=== PATIENT | female | born 1985 | race Caucasian/White ===

== ENCOUNTER → 2017-01-10 | Outpatient (CLI) | payer BC ==
[~2017-01-10] MED LIST: IBUP60TA PO; OMEP10CASR PO; PRENTAB31 PO
[2017-01-10 12:17] LABS: BASO % 0.7 % (0.0-1.0); EOS # 0.2 K/mm3 (0.0-0.50); EOS % 2.7 % (0.0-3.0); LARGE UNSTAINED CELL # 0.1 K/mm3 (0.0-0.4); LARGE UNSTAINED CELL % 1.6 % (0.0-4.0); LYMPH % 25.7 % (24.0-44.0); MEAN CORPUSCULAR HEMOGLOBIN 31.1 pg (27.0-33.0); MEAN CORPUSCULAR HGB CONC 35.6 g/dl (32.0-36.5); MEAN CORPUSCULAR VOLUME 87.3 fl (80.0-96.0); MONO # 0.3 K/mm3 (0.0-0.8); MONO % 4.5 % (0.0-5.0); NEUTROPHILS # 4.7 K/mm3 (1.8-7.7); NEUTROPHILS % 64.9 % (36.0-66.0); PLATELET COUNT, AUTOMATED 239 k/mm3 (150-450); RED CELL DISTRIBUTION WIDTH 12.6 % (11.5-14.5); WHITE BLOOD COUNT 7.3 K/mm3 (4.0-10.0)
[2017-01-10 12:38] LABS: HBsAg Prenatal NEGATIVE (NEGATIVE)
== END ==
LOC: M SMT 08:36
PROVIDERS: ATTEND Advanced Practice Midwife
DX: Z36 Encounter for antenatal screening of mother (principal)

== ENCOUNTER → 2017-01-17 | Outpatient (CLI) | payer BC ==
[2017-01-17 14:02] LABS: ALT/SGPT 21 U/L (12-78); AST/SGOT 12 U/L (15-37); BILIRUBIN,TOTAL 0.5 MG/DL (0.2-1.0); CREATININE FOR GFR 0.69 MG/DL (0.55-1.02); GLOMERULAR FILTRATION RATE > 60.0 (>60); URIC ACID 2.4 MG/DL (2.6-6.0)
== END ==
LOC: M SMT 08:24
PROVIDERS: ATTEND Advanced Practice Midwife
DX: O10.013 Pre-existing essential hypertension complicating pregnancy, third trimester (principal); O10.011 Pre-existing essential hypertension complicating pregnancy, first trimester; O99.280 Endocrine, nutritional and metabolic diseases complicating pregnancy, unspecified trimester

== ENCOUNTER → 2017-02-16 | Outpatient (REF) | payer BC | LOC: M LAB REF 17:14 | PROVIDERS: ATTEND Advanced Practice Midwife | DX: O10.011 Pre-existing essential hypertension complicating pregnancy, first trimester (principal) ==

== ENCOUNTER → 2017-03-28 | Outpatient (CLI) | payer BC ==
--- NOTE | 2017-03-29 07:20 | REP ---
Clinical: Anatomical evaluation. Comparison: None . Findings: Examination demonstrates a single live intrauterine in variable presentation. motion is identified by technologist. Placenta is noted anteriorly and grade zero without evidence for placenta previa or abruption. Amniotic fluid volume is normal. Cervix measures 4.9 cm in length and appears closed. Nuchal cord noted. Gestational age by LMP 19 weeks 0 days with KATARINA 08/22/2017 . Gestational age by current measurements 19 weeks 3 days with KATARINA 08/19/2017 . FHR equals 167 beats per minute. BPD 4.4 cm 19 weeks 2 days HC 16.5 cm 19 weeks 1 day AC 15.5 cm 20 weeks 5 days FL 2.8 cm 18 weeks 4 days HL 2.8 70 19 weeks 1 day HC/AC ratio 1.06 Estimated weight 304 grams ( 71st percentile). Anatomical assessment demonstrates normal structures including cranium, choroid plexus, cavum, cerebellum/posterior fossa, lungs, four-chamber heart/ventricular outflow tracts, diaphragm, stomach, cord insertion/three-vessel cord, kidneys/bladder, spine, and extremities. Impression: Single live intrauterine in variable presentation. Nuchal cord is suggested. Appropriate interval growth noted. Limited evaluation of the facial features. Otherwise complete anatomical assessment. Signed by Kimani Platt MD 03/29/2017 07:11 A
== END ==
LOC: M RAD 14:17
PROVIDERS: ATTEND Internal Medicine
DX: O34.211 Maternal care for low transverse scar from previous cesarean delivery (principal); Z3A.19 19 weeks gestation of pregnancy

== ENCOUNTER → 2017-04-21 | Outpatient (CLI) | payer BC ==
--- NOTE | 2017-04-22 05:03 | REP ---
Clinical: Anatomical evaluation. Comparison: 03/28/2017 . Findings: Examination demonstrates a single live intrauterine in transverse (head to maternal left) presentation. motion is identified by technologist. Placenta is noted anteriorly and grade zero without evidence for placenta previa or abruption. Amniotic fluid volume is normal. Cervix measures 4.7 cm in length and appears closed. No evidence for nuchal cord. Gestational age by LMP 22 weeks 3 days with KATARINA 08/22/2017 . Gestational age by current measurements 22 weeks 1 day with KATARINA 08/24/2017 . FHR equals 147 beats per minute. Estimated weight 530 grams ( 856 percentile). Anatomical assessment demonstrates normal structures including cranium, choroid plexus, cavum, cerebellum/posterior fossa, facial features, lungs, diaphragm, stomach, cord insertion/three-vessel cord, kidneys/bladder, and upper extremities. Impression: Single live intrauterine in transverse lie demonstrating appropriate interval growth. In conjunction with prior examination anatomical assessment is complete and normal. Signed by Kimani Platt MD 04/22/2017 04:55 A
== END ==
LOC: M SMT 13:19
PROVIDERS: ATTEND Advanced Practice Midwife
DX: Z36.2 Encounter for other antenatal screening follow-up (principal)

== ENCOUNTER → 2017-05-12 | Outpatient (CLI) | payer BC ==
[2017-05-12 18:47] LABS: BASO % 0.3 % (0.0-1.0); EOS # 0.4 10^3/uL (0.0-0.50); EOS % 3.5 % (0.0-3.0); IMMATURE GRANULOCYTE % 0.5 % (0-0); LYMPH # 2.2 10^3/uL (1.5-4.5); LYMPH % 20.4 % (24.0-44.0); MEAN CORPUSCULAR HEMOGLOBIN 30.5 pg (27.0-33.0); MEAN CORPUSCULAR HGB CONC 34.3 g/dl (32.0-36.5); MONO # 0.7 10^3/uL (0.0-0.8); MONO % 6.4 % (0.0-5.0); NEUTROPHILS # 7.5 10^3/uL (1.8-7.7); NEUTROPHILS % 68.9 % (36.0-66.0); PLATELET COUNT, AUTOMATED 229 10^3/uL (150-450); RED CELL DISTRIBUTION WIDTH 13.2 % (11.5-14.5); WHITE BLOOD COUNT 10.8 10^3/uL (4.0-10.0)
== END ==
LOC: M SMT 13:36
PROVIDERS: ATTEND Advanced Practice Midwife
DX: Z34.83 Encounter for supervision of other normal pregnancy, third trimester (principal)

== ENCOUNTER → 2017-07-01 | Outpatient (REF) | payer BC | LOC: M LAB REF 13:47 | DX: J02.9 Acute pharyngitis, unspecified (principal) | CPT/HCPCS: 87081 ==

== ENCOUNTER → 2017-07-25 | Outpatient (REF) | payer BC | LOC: M LAB REF 17:05 | DX: Z34.83 Encounter for supervision of other normal pregnancy, third trimester (principal) ==

== ENCOUNTER → 2017-07-27 | Outpatient (CLI) | payer BC | LOC: M SMT 08:37 | DX: Z36.9 Encounter for antenatal screening, unspecified (principal); O10.011 Pre-existing essential hypertension complicating pregnancy, first trimester; Z3A.36 36 weeks gestation of pregnancy | CPT/HCPCS: 76815 ==

== ENCOUNTER 2017-08-15 07:09 | Inpatient (IN) | payer BC ==
[2017-08-15] MEDS ORDERED: LR 1,000 ML IV (09:00)
[2017-08-15] MEDS: LACTATED RINGER'S 1000 ML IV (09:00)
[2017-08-15 09:19] LABS: HEMATOCRIT 34.4 % (36.0-47.0); HEMOGLOBIN 11.9 g/dl (12.0-16.0); MEAN CORPUSCULAR HEMOGLOBIN 29.7 pg (27.0-33.0); MEAN CORPUSCULAR HGB CONC 34.6 g/dl (32.0-36.5); MEAN CORPUSCULAR VOLUME 85.8 fl (80.0-96.0); PLATELET COUNT, AUTOMATED 204 10^3/uL (150-450); RED BLOOD COUNT 4.01 10^6/uL (4.00-5.40); RED CELL DISTRIBUTION WIDTH 13.6 % (11.5-14.5); WHITE BLOOD COUNT 7.4 10^3/uL (4.0-10.0)
[2017-08-15] MEDS: BICITRA 30ML SOLN UDC PO (10:56)
[2017-08-15] MEDS ORDERED: NALBUPHINE HCL 10 MG/ML AMP (J2300) IV ×2 (11:08→12:30)
[2017-08-15] MEDS ORDERED: NALOXONE INJ 0.4 MG/1 ML VIAL (J2310) IV ×2 (11:08)
[2017-08-15] MEDS ORDERED: ONDANSETRON 4MG/2ML VIAL (J2405) IV ×3 (11:08→12:30)
[2017-08-15] MEDS ORDERED: OXYTOCIN INJ 10 UNITS/ML VIAL (J2590) As Ordered (11:39)
[2017-08-15] MEDS ORDERED: KETOROLAC 60 MG/2 ML VIAL (J1885) As Ordered (11:39)
[2017-08-15] MEDS ORDERED: ONDANSETRON 4MG/2ML VIAL (J2405) As Ordered (11:39)
[2017-08-15] MEDS ORDERED: PHENYLephrine HCL 500 MCG/5 ML (100MCG/ML) SYRINGE (J2370) As Ordered (11:39)
[2017-08-15] MEDS ORDERED: ePHEDrine SULFATE 25 MG/5 ML(5MG/ML) SYRINGE As Ordered (11:39)
[2017-08-15] MEDS ORDERED: MORPHINE PRES-FREE INJ 10 MG/10 ML VIAL (J2274) As Ordered (11:39)
[2017-08-15] MEDS ORDERED: DOCUSATE SODIUM 100 MG CAP PO (12:00)
[2017-08-15] MEDS ORDERED: PERCOCET 5MG/325MG TAB PO ×2 (12:00)
[2017-08-15] MEDS: OXYTOCIN DRIP 30 UNITS in APPROPRIATE DILUENT 1 EA IV (12:00)
[2017-08-15] MEDS ORDERED: MEASLES,MUMPS,RUBELLA VACCINE INJ (MMR-II) (90707) SC (12:00)
[2017-08-15] MEDS ORDERED: RHOGAM 300 MCG (1500 IU) INJ (J2790) IM (12:00)
[2017-08-15] MEDS ORDERED: fentaNYL 100 MCG/2 ML INJECTION (J3010) IV (12:30)
[2017-08-15] MEDS: LR 1,000 ML IV ×2 (13:47→19:59)
[2017-08-15] MEDS: PRENATAL VITAMINS CHEWABLE TABLET PO (13:54)
[2017-08-15] MEDS ORDERED: KETOROLAC 30 MG/ML VIAL (J1885) IV (14:00)
[2017-08-15] MEDS: METOCLOPRAMIDE INJ 10MG/2ML VIAL (J2765) IV (16:07)
[2017-08-15] MEDS: KETOROLAC 30 MG/ML VIAL (J1885) IV (18:35)
[2017-08-16] MEDS: KETOROLAC 30 MG/ML VIAL (J1885) IV ×3 (00:34→12:50)
[2017-08-16] MEDS: LR 1,000 ML IV (04:22)
[2017-08-16 07:05] LABS: HEMATOCRIT 29.1 % (36.0-47.0); MEAN CORPUSCULAR HEMOGLOBIN 29.7 pg (27.0-33.0); MEAN CORPUSCULAR VOLUME 87.4 fl (80.0-96.0); PLATELET COUNT, AUTOMATED 149 10^3/uL (150-450); RED BLOOD COUNT 3.33 10^6/uL (4.00-5.40); RED CELL DISTRIBUTION WIDTH 13.9 % (11.5-14.5); WHITE BLOOD COUNT 7.1 10^3/uL (4.0-10.0)
[2017-08-16 07:14] LABS: HEMOGLOBIN 9.9 g/dl (12.0-16.0)
[2017-08-16] MEDS: PRENATAL VITAMINS CHEWABLE TABLET PO (08:06)
[2017-08-16] MEDS: IBUPROFEN 800 MG TAB PO (20:38)
[2017-08-17] MEDS: IBUPROFEN 800 MG TAB PO ×2 (04:53→11:46)
[2017-08-17] MEDS: PRENATAL VITAMINS CHEWABLE TABLET PO (08:37)
== END 2017-08-17 12:15 | disposition home or self-care (01) | DRG 540 ==
LOC: M LDI 07:09 → M OBS 13:32
PROVIDERS: Obstetrics & Gynecology
PROC: 10D00Z1 Extraction of Products of Conception, Low, Open Approach (ICD-10-PCS; principal; 2017-08-15 09:30)
DX: O34.211 Maternal care for low transverse scar from previous cesarean delivery (principal); Z37.0 Single live birth; Z3A.39 39 weeks gestation of pregnancy

== ENCOUNTER → 2018-03-14 | Outpatient (REF) | payer BC ==
[2018-03-14 13:13] LABS: HEMATOCRIT 39.4 % (36.0-47.0); HEMOGLOBIN 13.8 g/dl (12.0-15.5); MEAN CORPUSCULAR HEMOGLOBIN 30.4 pg (27.0-33.0); MEAN CORPUSCULAR VOLUME 86.8 fl (80.0-96.0); PLATELET COUNT, AUTOMATED 208 10^3/uL (150-450); RED BLOOD COUNT 4.54 10^6/uL (4.00-5.40); RED CELL DISTRIBUTION WIDTH 13.2 % (11.5-14.5); WHITE BLOOD COUNT 6.3 10^3/uL (4.0-10.0)
[2018-03-14 14:27] LABS: ESTIMATED AVERAGE GLUCOSE 88 MG/DL (60-110); HEMOGLOBIN A1c 4.7 %
[2018-03-14 14:32] LABS: ALBUMIN 4.2 GM/DL (3.2-5.2); ALKALINE PHOSPHATASE 46 U/L (45-117); ALT/SGPT 30 U/L (12-78); ANION GAP 8 MEQ/L (8-16); AST/SGOT 13 U/L (7-37); BILIRUBIN,TOTAL 0.8 MG/DL (0.2-1.0); BLOOD UREA NITROGEN 17 MG/DL (7-18); CALCIUM LEVEL 8.9 MG/DL (8.5-10.1); CARBON DIOXIDE LEVEL 23 MEQ/L (21-32); CHLORIDE LEVEL 110 MEQ/L (98-107); CHOLESTEROL LEVEL 168 MG/DL (<200); CHOLESTEROL RISK RATIO 3.652 (<5); CREATININE FOR GFR 0.71 MG/DL (0.55-1.30); FREE T4 0.93 NG/DL (0.76-1.46); GLOMERULAR FILTRATION RATE > 60.0 (>60); GLUCOSE, FASTING 83 MG/DL (70-100); HDL CHOLESTEROL 46 MG/DL (>40); LDL CHOLESTEROL 107 MG/DL (<100); NON-HDL-C 122 MG/DL; POTASSIUM SERUM 4.1 MEQ/L (3.5-5.1); SODIUM LEVEL 141 MEQ/L (136-145); TRIGLYCERIDES LEVEL 77 MG/DL (<150)
== END ==
LOC: M SFHCADAM 08:36
DX: E66.9 Obesity, unspecified (principal); E28.2 Polycystic ovarian syndrome
CPT/HCPCS: 84443

== ENCOUNTER → 2018-11-03 | Outpatient (REF) | payer BC ==
[~2018-11-03] MED LIST changes: +COLA100C5 PO; +IBUP1TAB7 PO; +IBUP600T42 PO; -IBUP60TA PO; +PERCOCET PO
== END ==
LOC: M LAB REF 13:40
PROVIDERS: ATTEND Advanced Practice Midwife
DX: Z12.4 Encounter for screening for malignant neoplasm of cervix (principal); Z11.51 Encounter for screening for human papillomavirus (HPV)

== ENCOUNTER → 2020-10-21 | Outpatient (REF) | payer BC ==
[2020-10-21 14:40] LABS: HEMATOCRIT 42.1 % (36.0-47.0); HEMOGLOBIN 14.2 g/dl (12.0-15.5); MEAN CORPUSCULAR HGB CONC 33.7 g/dl (32.0-36.5); MEAN CORPUSCULAR VOLUME 88.8 fl (80.0-96.0); PLATELET COUNT, AUTOMATED 225 10^3/uL (150-450); RED BLOOD COUNT 4.74 10^6/uL (4.00-5.40); WHITE BLOOD COUNT 6.3 10^3/uL (4.0-10.0)
[2020-10-21 15:24] LABS: THYROID STIMULATING HORMONE 1.64 uIU/ML (0.358-3.740)
== END ==
LOC: M PLALAB 09:25
PROVIDERS: ATTEND Advanced Practice Midwife
DX: Z12.4 Encounter for screening for malignant neoplasm of cervix (principal); R53.83 Other fatigue; R63.5 Abnormal weight gain

== ENCOUNTER → 2022-03-31 | Outpatient (CLI) | payer BC ==
[2022-03-31 17:26] LABS: MEAN CORPUSCULAR HEMOGLOBIN 29.7 pg (27.0-33.0); MEAN CORPUSCULAR HGB CONC 34.2 g/dl (32.0-36.5); PLATELET COUNT, AUTOMATED 259 10^3/uL (150-450); RED BLOOD COUNT 4.37 10^6/uL (4.00-5.40); WHITE BLOOD COUNT 9.7 10^3/uL (4.0-10.0)
[2022-03-31 18:45] LABS: HEPATITIS C VIRUS ABY INDEX < 0.0 INDEX (<0.8); HIV 1&2 SCREEN CENTAUR NEGATIVE (NEGATIVE)
[2022-03-31 20:12] LABS: GC DNA AMPLIFICATION NEGATIVE (NEGATIVE)
== END ==
LOC: M PLALAB 15:28
PROVIDERS: ATTEND Advanced Practice Midwife
DX: O34.211 Maternal care for low transverse scar from previous cesarean delivery (principal)

== ENCOUNTER → 2022-06-02 | Outpatient (CLI) | payer BC | LOC: M WHC 11:41 | PROVIDERS: ATTEND Advanced Practice Midwife | DX: Z34.92 Encounter for supervision of normal pregnancy, unspecified, second trimester (principal) ==

== ENCOUNTER → 2022-06-04 | Outpatient (REF) | payer BC ==
[2022-06-04 18:47] LABS: APPEARANCE, URINE MANUAL CLEAR (CLEAR); COLOR, URINE MANUAL YELLOW (YELLOW); GLUCOSE, URINE (UA) MANUAL NEGATIVE (NEGATIVE); PROTEIN, URINE MANUAL NEGATIVE (NEGATIVE); SPECIFIC GRAVITY,URINE MANUAL 1.015 (1.002-1.035)
[2022-06-04 18:48] LABS: BILIRUBIN, URINE MANUAL NEGATIVE (NEGATIVE); BLOOD URINE MANUAL NEGATIVE (NEGATIVE); KETONE, URINE MANUAL 1+ mg/dL (NEGATIVE); LEUKOCYTE ESTERASE, URINE MAN POSITIVE (NEGATIVE); NITRITE, URINE MANUAL NEGATIVE (NEGATIVE); UROBILINOGEN, URINE MANUAL NORMAL (NORMAL)
[2022-06-04 19:16] LABS: BACTERIA, URINE LARGE AMOUNT; HYALINE CAST, URINE NONE SEEN /lpf (0-1); MUCUS, URINE SMALL AMOUNT (NEGATIVE); RBC, URINE 0-1 /hpf (0-3); SQUAMOUS EPITHELIAL CELL URINE LARGE AMOUNT /hpf (SMALL AMT); YEAST, URINE SMALL AMOUNT
== END ==
LOC: M SFHCWAGY 16:58
PROVIDERS: ATTEND Obstetrics & Gynecology
DX: R30.0 Dysuria (principal)

== ENCOUNTER → 2022-06-21 | Outpatient (CLI) | payer BC | LOC: M WHC 11:39 | PROVIDERS: ATTEND Obstetrics & Gynecology | DX: Z36.2 Encounter for other antenatal screening follow-up (principal); Z3A.22 22 weeks gestation of pregnancy ==

== ENCOUNTER → 2022-07-30 | Outpatient (CLI) | payer BC ==
[2022-07-30 17:34] LABS: MEAN CORPUSCULAR HEMOGLOBIN 30.2 pg (27.0-33.0); MEAN CORPUSCULAR HGB CONC 33.3 g/dl (32.0-36.5); MEAN CORPUSCULAR VOLUME 90.7 fl (80.0-96.0); PLATELET COUNT, AUTOMATED 212 10^3/uL (150-450); RED BLOOD COUNT 3.64 10^6/uL (4.00-5.40); WHITE BLOOD COUNT 10.4 10^3/uL (4.0-10.0)
[2022-07-30 17:51] LABS: ALBUMIN 3.1 G/DL (3.2-5.2); ALKALINE PHOSPHATASE 54 U/L (46-116); ALT/SGPT 14 U/L (7.0-40); AST/SGOT 11 U/L (<34); BILIRUBIN,TOTAL 0.3 MG/DL (0.3-1.2); BLOOD UREA NITROGEN 10 MG/DL (9-23); CALCIUM LEVEL 8.9 MG/DL (8.5-10.1); CARBON DIOXIDE LEVEL 24 MMOL/L (20-31); CHLORIDE LEVEL 104 MMOL/L (98-107); GLOMERULAR FILTRATION RATE > 60.0 (>60); GLUCOSE, FASTING 119 MG/DL (60-100); POTASSIUM SERUM 3.4 MMOL/L (3.5-5.1); SODIUM LEVEL 135 MMOL/L (136-145); TOTAL PROTEIN 6.6 G/DL (5.7-8.2)
[2022-07-30 18:10] LABS: CREATININE,RANDOM URINE 26.6 MG/DL; TOTAL PROTEIN,RANDOM URINE < 6.0 MG/DL (0.0-14.0)
== END ==
LOC: M PLALAB 14:17
PROVIDERS: ATTEND Advanced Practice Midwife
DX: Z34.92 Encounter for supervision of normal pregnancy, unspecified, second trimester (principal)

== ENCOUNTER 2022-10-07 09:38 | Inpatient (IN) | payer BC, MEDICAID ==
[2022-10-07] VITALS (8 sets, daily range): BP systolic 110–141; BP diastolic 55–98
[~2022-10-07] VITALS: Ht 172.7 cm; Wt 124.5 kg
[~2022-10-07 09:38] MED LIST changes: +METF750T36 PO; +OMEP1CAP73 PO; +PRENTAB53 PO
[2022-10-07] MEDS ORDERED: LACTATED RINGER'S 1000 ML IV STA (09:51)
[2022-10-07] MEDS ORDERED: TRANEXAMIC ACID INJection 1,000 MG in NS 100 ML IV PRN (09:55)
[2022-10-07] MEDS ORDERED: AZITHROMYCIN INJ 500 MG, VIAL MATE ADAPTER 1 EACH in NS 250 ML IV ONE (09:55)
[2022-10-07] MEDS ORDERED: BICITRA 30ML SOLN UDC PO ONE (09:55)
[2022-10-07] MEDS ORDERED: HOME MED LIST COMPLETE! XX SCH (09:55)
[2022-10-07] MEDS ORDERED: ceFAZolin SOD 2 GM in IV 1 EA IV ONE (09:55)
[2022-10-07] MEDS ORDERED: CARBOPROST TROMETHAMINE 250 MCG/ML AMP IM PRN (09:55)
[2022-10-07] MEDS ORDERED: OXYTOCIN DRIP 30 UNITS in IV 1 EA IV PRN ×4 (09:55)
[2022-10-07 10:32] LABS: HEMATOCRIT 34.3 % (36.0-47.0); HEMOGLOBIN 11.8 g/dl (12.0-15.5); MEAN CORPUSCULAR HEMOGLOBIN 29.8 pg (27.0-33.0); MEAN CORPUSCULAR HGB CONC 34.4 g/dl (32.0-36.5); MEAN CORPUSCULAR VOLUME 86.6 fl (80.0-96.0); PLATELET COUNT, AUTOMATED 199 10^3/uL (150-450); RED BLOOD COUNT 3.96 10^6/uL (4.00-5.40); WHITE BLOOD COUNT 8.8 10^3/uL (4.0-10.0)
[2022-10-07] MEDS ORDERED: METOCLOPRAMIDE INJ 10MG/2ML VIAL IV ONE (10:55)
[2022-10-07] MEDS: LR 1,000 ML IV SCH ×4 (11:19→22:55)
[2022-10-07] MEDS ORDERED: MORPHINE PRES-FREE INJ 10 MG/10 ML VIAL As Ordered ONE (12:49)
[2022-10-07] MEDS ORDERED: OXYTOCIN 30UNITS IN 0.9% NaCl 500ML IV BAG As Ordered ONE ×2 (12:49→16:21)
[2022-10-07] MEDS ORDERED: ePHEDrine SULFATE 25 MG/5 ML(5MG/ML) SYRINGE As Ordered ONE (14:06)
[2022-10-07] MEDS ORDERED: PHENYLephrine 500MCG 5ML (100MCG/ML) SYRINGE As Ordered ONE (14:06)
[2022-10-07] MEDS ORDERED: PHENYLEPHRINE 10MG/ML 1ML VIAL As Ordered ONE (14:09)
[2022-10-07] MEDS ORDERED: ONDANSETRON 4MG 2ML VIAL As Ordered ONE (14:10)
[2022-10-07] MEDS ORDERED: ACETAMINOPHEN 1000MG 100ML IV BAG As Ordered ONE (14:12)
[2022-10-07] MEDS ORDERED: KETOROLAC 60MG 2ML VIAL As Ordered ONE (14:18)
[2022-10-07] MEDS ORDERED: ONDANSETRON 4MG 2ML VIAL IV PRN ×2 (14:55→15:25)
[2022-10-07] MEDS ORDERED: MOM 30ML SUSPENSION UDC PO PRN (14:55)
[2022-10-07] MEDS ORDERED: PERCOCET 5MG/325MG TAB PO PRN ×2 (14:55)
[2022-10-07] MEDS ORDERED: OXYTOCIN DRIP 30 UNITS in IV 1 EA IV SCH (14:55)
[2022-10-07] MEDS ORDERED: SIMETHICONE 80MG CHEW TAB PO PRN (14:55)
[2022-10-07] MEDS ORDERED: RHOGAM 300MCG (1500IU) INJ IM SCH (14:55)
[2022-10-07] MEDS ORDERED: OXYTOCIN INJ 10UNITS/ML 1ML VIAL As Ordered ONE (14:59)
[2022-10-07] MEDS ORDERED: fentaNYL 100 MCG/2 ML INJECTION IV PRN (15:25)
[2022-10-07] MEDS ORDERED: diphenhydrAMINE 50MG/ML VIAL IV PRN (15:25)
[2022-10-07] MEDS ORDERED: METOCLOPRAMIDE INJ 10MG/2ML VIAL IV PRN (15:25)
[2022-10-07] MEDS ORDERED: NALOXONE INJ 0.4MG/1ML VIAL IV PRN ×2 (15:25)
[2022-10-07] MEDS ORDERED: oxyCODONE 5MG TAB PO PRN (15:25)
[2022-10-07] MEDS ORDERED: MEPERIDINE 25 MG/ML 1ML VIAL IV PRN (15:25)
[2022-10-07] MEDS ORDERED: **NOTE PATIENT COMMENT** MISC XX SCH (15:25)
[2022-10-07] MEDS: SLF 3 ML SYR IV SCH (15:25)
[2022-10-07] MEDS ORDERED: LR 1,000 ML IV SCH (15:25)
[2022-10-07] MEDS: KETOROLAC 30 MG/ML 1ML VIAL IV SCH (21:08)
[2022-10-07] MEDS: DOCUSATE SODIUM 100MG CAPSULE PO SCH (21:08)
[2022-10-08] MEDS: SLF 3 ML SYR IV SCH ×2 (00:25→17:01)
[2022-10-08] MEDS: LR 1,000 ML IV SCH ×2 (01:55→06:34)
[2022-10-08 02:00] VITALS: BP 106/69
[2022-10-08] MEDS: KETOROLAC 30 MG/ML 1ML VIAL IV SCH ×2 (02:52→09:25)
[2022-10-08 06:00] VITALS: BP 123/71
[2022-10-08 07:28] LABS: HEMATOCRIT 29.8 % (36.0-47.0); HEMOGLOBIN 10.2 g/dl (12.0-15.5); MEAN CORPUSCULAR HEMOGLOBIN 29.7 pg (27.0-33.0); MEAN CORPUSCULAR HGB CONC 34.2 g/dl (32.0-36.5); MEAN CORPUSCULAR VOLUME 86.9 fl (80.0-96.0); PLATELET COUNT, AUTOMATED 172 10^3/uL (150-450); RED BLOOD COUNT 3.43 10^6/uL (4.00-5.40); WHITE BLOOD COUNT 12.5 10^3/uL (4.0-10.0)
[2022-10-08] MEDS: PRENATAL VITAMINS CHEWABLE TABLET PO SCH (09:29)
[2022-10-08] MEDS: DOCUSATE SODIUM 100MG CAPSULE PO SCH ×2 (09:29→20:15)
[2022-10-08 10:00] VITALS: BP 127/70
[2022-10-08 14:00] VITALS: BP 116/68
[2022-10-08] MEDS: IBUPROFEN 800 MG TAB PO SCH (17:00)
[2022-10-08 18:00] VITALS: BP 122/59
[2022-10-08 22:00] VITALS: BP 133/58
[2022-10-09] MEDS: IBUPROFEN 800 MG TAB PO SCH ×2 (00:57→08:52)
[2022-10-09 02:00] VITALS: BP 122/65
[2022-10-09 06:00] VITALS: BP 126/65
[2022-10-09] MEDS: PRENATAL VITAMINS CHEWABLE TABLET PO SCH (08:51)
[2022-10-09] MEDS: DOCUSATE SODIUM 100MG CAPSULE PO SCH (08:51)
[2022-10-09] MEDS ORDERED: MEASLES,MUMPS,RUBELLA VACCINE INJ (MMR-II) SC.IMMUN ONE (09:00)
[2022-10-09] MEDS ORDERED: COLA100C5 PO (09:32)
[2022-10-09] MEDS ORDERED: IBUP80TA PO (09:32)
[2022-10-09] MEDS ORDERED: PERCOCET PO (09:32)
== END 2022-10-09 13:45 | disposition home or self-care (01) | DRG 540 ==
LOC: M LDO 09:38 → M LDI 09:48 → EEVIPCON 09:48 → M OBS 16:54
PROVIDERS: ADMIT Obstetrics & Gynecology; ATTEND Obstetrics & Gynecology
PROC: 0UB70ZZ Excision of Bilateral Fallopian Tubes, Open Approach (ICD-10-PCS; 2022-10-07)
PROC: 10D00Z1 Extraction of Products of Conception, Low, Open Approach (ICD-10-PCS; principal; 2022-10-07 13:30)
DX: O42.02 Full-term premature rupture of membranes, onset of labor within 24 hours of rupture (principal); E66.9 Obesity, unspecified; O99.214 Obesity complicating childbirth; O34.211 Maternal care for low transverse scar from previous cesarean delivery; Z3A.37 37 weeks gestation of pregnancy; Z37.0 Single live birth; Z30.2 Encounter for sterilization

== ENCOUNTER → 2024-06-14 | Outpatient (REF) | payer OTHER ==
[~2024-06-14] MED LIST changes: +IBUP80TA PO
[2024-06-14 14:12] LABS: APPEARANCE, URINE CLEAR (CLEAR); BACTERIA, URINE AUTO 1+ (NEGATIVE); BILIRUBIN, URINE AUTO NEGATIVE (NEGATIVE); BLOOD, URINE BLOOD NEGATIVE (NEGATIVE); COLOR, URINE YELLOW (YELLOW); GLUCOSE, URINE (UA) AUTO NEGATIVE (NEGATIVE); KETONE, URINE AUTO NEGATIVE (NEGATIVE); LEUKOCYTE ESTERASE, URINE AUTO NEGATIVE (NEGATIVE); NITRITE, URINE AUTO NEGATIVE (NEGATIVE); PROTEIN, URINE AUTO NEGATIVE (NEGATIVE); RBC, URINE AUTO 0 /HPF (0-3); SPECIFIC GRAVITY URINE AUTO 1.008 (1.002-1.035); SQUAMOUS EPITHELIAL CELL UR AU 1 /HPF (0-6); UROBILINOGEN, URINE AUTO 0.2 mg/dL (0.0-2.0); WBC, URINE AUTO 4 /HPF (0-3)
[2024-06-14 14:21] LABS: HEMOGLOBIN 14.1 g/dl (12.0-15.5); MEAN CORPUSCULAR HEMOGLOBIN 30.3 pg (27.0-33.0); MEAN CORPUSCULAR HGB CONC 34.4 g/dl (32.0-36.5); MEAN CORPUSCULAR VOLUME 88.2 fl (80.0-96.0); PLATELET COUNT, AUTOMATED 262 10^3/uL (150-450); RED BLOOD COUNT 4.65 10^6/uL (4.00-5.40); WHITE BLOOD COUNT 6.5 10^3/uL (4.0-10.0)
[2024-06-14 14:25] LABS: ALKALINE PHOSPHATASE 52 U/L (35-104); ALT/SGPT 23 U/L (7.0-40); AST/SGOT 12 U/L (<34); BILIRUBIN,TOTAL 0.5 MG/DL (0.3-1.2); BLOOD UREA NITROGEN 14 MG/DL (9-23); CALCIUM LEVEL 9.8 MG/DL (8.5-10.1); CARBON DIOXIDE LEVEL 26 MMOL/L (20-31); CHLORIDE LEVEL 107 MMOL/L (98-107); CHOLESTEROL LEVEL 224 MG/DL (<200); CHOLESTEROL RISK RATIO 3.87 (<5); CREATININE FOR GFR 0.77 MG/DL (0.55-1.30); GLOMERULAR FILTRATION RATE > 60.0 (>60); GLUCOSE, FASTING 86 MG/DL (60-100); HDL CHOLESTEROL 57.8 MG/DL (>40); LDL CHOLESTEROL 145.8 MG/DL (<100); NON-HDL-C 166.2 MG/DL; POTASSIUM SERUM 4.4 MMOL/L (3.5-5.1); SODIUM LEVEL 139 MMOL/L (136-145); TOTAL PROTEIN 7.2 G/DL (5.7-8.2); TRIGLYCERIDES LEVEL 102 MG/DL (<150)
[2024-06-14 14:26] LABS: FREE T4 1.27 NG/DL (0.89-1.76); THYROID STIMULATING HORMONE 1.873 uIU/ML (0.55-4.78)
[2024-06-14 14:41] LABS: CREATININE, URINE 43.9 MG/DL; MALB URINE SIEMENS < 3.0 MG/L
[2024-06-14 14:47] LABS: HEMOGLOBIN A1c 4.8 % (4.0-6.0)
== END ==
LOC: M SFHCADAM 08:48
PROVIDERS: ATTEND Physician Assistant
DX: Z00.00 Encounter for general adult medical examination without abnormal findings (principal); E28.2 Polycystic ovarian syndrome; E66.01 Morbid (severe) obesity due to excess calories; R03.0 Elevated blood-pressure reading, without diagnosis of hypertension; R82.90 Unspecified abnormal findings in urine; Z13.220 Encounter for screening for lipoid disorders; Z13.1 Encounter for screening for diabetes mellitus; Z28.21 Immunization not carried out because of patient refusal

== ENCOUNTER 2024-11-04 12:05 | Emergency (ER) | payer OTHER ==
[~2024-11-04] VITALS: Ht 170.2 cm; Wt 120.5 kg
[2024-11-04 12:08] VITALS: BP 142/90; TEMP 98.3; O2SAT 100
[2024-11-04] MEDS ORDERED: METH-1164 PO (14:52)
[2024-11-04] MEDS ORDERED: NAPR-837 PO (14:52)
[2024-11-04] MEDS: methocarbamoL 500 MG TAB PO ONE (14:56)
[2024-11-04] MEDS: NAPROXEN 250 MG TAB PO ONE (14:57)
== END 2024-11-04 15:13 | disposition home or self-care (01) ==
LOC: M ED 12:05
DX: S76.312A Strain of muscle, fascia and tendon of the posterior muscle group at thigh level, left thigh, initial encounter (principal); S83.92XA Sprain of unspecified site of left knee, initial encounter; W01.198A Fall on same level from slipping, tripping and stumbling with subsequent striking against other object, initial encounter; Y92.009 Unspecified place in unspecified non-institutional (private) residence as the place of occurrence of the external cause; Y93.9 Activity, unspecified; Y99.9 Unspecified external cause status; Z79.899 Other long term (current) drug therapy

== ENCOUNTER → 2025-05-22 | Outpatient (REF) | payer OTHER ==
[~2025-05-22] MED LIST changes: +METH-1164 PO; +NAPR-837 PO
[2025-05-24 16:20] LABS: HPV APTIMA Not Detected (Not Detected)
== END ==
LOC: M SFHCWAGY 14:51
PROVIDERS: ATTEND Advanced Practice Midwife
DX: Z12.4 Encounter for screening for malignant neoplasm of cervix (principal)
CPT/HCPCS: 87624; G0123